=== PATIENT | male | born 1955 | race Caucasian/White ===

== ENCOUNTER → 2022-06-23 14:10 | Outpatient (CLI) | payer MEDICARE, SELFPAY ==
--- NOTE | ~2022-06-23 | MR_ITS ---
EXAMINATION: MR knee RT wo con DATE: 06/23/2022 14:48 INDICATION: Chronic right knee pain TECHNIQUE: Magnetic resonance imaging (MRI) of the right knee was performed without intravenous contr ast. Sequences included coronal PD-weighted FSE, coronal PD-weighted FS FSE, sagittal T2-weighted FS E, sagittal PD-weighted FS FSE and axial PD weighted fat saturated FSE. COMPARISON: None. FINDINGS: Medial compartment: Complex medial meniscal tear with with . Beak configuration tear plane at the junction of the body an d posterior horn and longitudinal horizontal tear plane at the small medial meniscal body which conta cts the superior articular surface anteriorly crossing the free edge to involve the inferior articula r surface more posteriorly. Partial-thickness chondral ulceration and deep fissuring with minimal sub articular edema-like signal change at the anterior weightbearing medial femoral condyle and with ongo ing cortical irregularity and mild cystlike change at the central weightbearing medial femoral condyl e. Mild partial-thickness cartilage loss with subtle chondral surface regularity at the weightbearing medial femoral condyle. Lateral compartment: Lateral meniscus is normal. Articular cartilage is normal. Patellofemoral compartment: Deep chondral fissuring with subarticular edema-like signal change at the patellar apical ridge and m edial facet. Prominent central subchondral osteophytes, some surrounding reticular edema-like and cys tlike changes associated with deep chondral ulceration at the medial trochlea, trochlear groove and m edial side of the lateral trochlea. Ligaments and tendons: Anterior and posterior cruciate ligaments are normal. The medial collateral ligament and fibular boyd ateral ligament complex are normal. The extensor mechanism is normal. The visualized medial and later al hamstring tendons as well as the iliotibial band are normal. Fluid: Small right knee joint effusion at the suprapatellar pouch. There is a cluster of four, 4 mm-8 mm loo se osteochondral bodies in the recess posterior to the posterior cruciate ligament and posterior horn of the medial meniscus. Osseous/other: Aside from the previous noted subarticular signal changes there is normal marrow signal throughout. N o fracture or pathologic marrow replacing process. IMPRESSION: 1. Complex medial meniscal tear. 2. 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 Reviewed, dictated and finalized at location B. [facility] [employer] IMPRESSION: 1. Complex medial meniscal tear. 2. 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
== END ==
PROVIDERS: PCP Internal Medicine; Visit Provider Orthopaedic Surgery
DX: S83.231A Complex tear of medial meniscus, current injury, right knee, initial encounter (principal); X58.XXXA Exposure to other specified factors, initial encounter; M17.11 Unilateral primary osteoarthritis, right knee
CPT/HCPCS: 73721